=== PATIENT | female | born 1985 | race Caucasian/White ===

== ENCOUNTER 2016-06-09 21:22 | Inpatient (IN) | payer OTHER ==
--- NOTE | ~2016-06-09 | HP ---
Unit #: [id number] #: [id number] Patient: GEORGE MARIE [id number] [address] [place], [place] [address] [id number] I MR#: [id number] NAME: GEORGE MARIE ROOM: 227 Age: 31 Sex: F Admission Date: 06/10/2016 : 1985 Attending Physician: Yana Hart M.D. Primary Care Physician: No Primary Care Physician HISTORY AND PHYSICAL CHIEF COMPLAINT Right-sided pyelonephritis with intractable symptoms. HISTORY This pleasant 31-year-old female with psoriatic arthritis, was transferred from [facility] emergency department for pyelonephritis. Two weeks ago the patient began to experience right upper quadrant to right flank pain, somewhat worse with urination. Recently she has had a nonproductive cough with headaches with a cough, generalized malaise, and more recently sweats and chills. She presented to [facility] ER last evening with a temperature of 99.5. Urine showed significant pyuria, and CT scan was consistent with right pyelonephritis. She was treated with morphine, Zofran, bolused with saline, given 1 g of Rocephin, along with some Dilaudid. Notes that her urine is darker and somewhat malodorous. Also has been experiencing recent nausea and vomiting. PAST MEDICAL HISTORY 1. Psoriatic arthritis. 2. BTL. 3. Endometrial ablation. ALLERGIES Penicillin, Levaquin, tetracycline and Remicade. HOME MEDICATIONS Aleve. FAMILY HISTORY Negative for kidney disease. SOCIAL HISTORY The patient lives with her four children and boyfriend. Smokes 1/2 pack per day of tobacco, does not drink alcohol or use illicit drugs. REVIEW OF SYSTEMS Notable for right upper quadrant, right flank pain, nausea, vomiting, headache, cough, fevers, chills, dark urine, psoriatic arthritis, tobacco use and above mentioned surgeries. All other systems were reviewed and are negative. PHYSICAL EXAMINATION GENERAL: Saundra mildly obese, 31-year-old female currently in no acute distress. Unit #: [id number] #: [id number] Patient: GEORGE MARIE VITAL SIGNS: Temperature 99.5, pulse 95, respirations 20, blood pressure 114/71, O2 saturation 100% on room air. HEENT: Eyes - PERRLA, extraocular muscles are intact. Pharynx is benign. NECK: Supple without adenopathy or thyromegaly. CHEST: Clear with right CVA percussion tenderness. CARDIAC: Normal S1, S2, without S3, S4, or murmur. A ABDOMEN: Bowel sounds are present. Patient is tender in the right upper quadrant without rebound or guarding. No hepatosplenomegaly or masses. EXTREMITIES: Without clubbing, cyanosis or edema. Pedal pulses are present. NEUROLOGIC: Patient is awake, alert and oriented. Cranial nerves are intact. Equal strength throughout. DIAGNOSTIC STUDIES LABS: Hematocrit is 31.6, white blood count 19, normal platelet count and MCV. SMA 12 - albumin is 3. Normal lipase and lactic acid level. Beta HCG negative. Urine - positive leukocyte esterase, nitrates and protein with 25-50 red cells, 50-100 white cells, 2+ bacteria. Many squamous cells are noted. IMAGING STUDIES: Chest x-ray - no acute disease. CT scan of the abdomen and pelvis suggestive of possible pyelonephritis involving the right kidney. ASSESSMENT 1. Right-sided pyelonephritis with intractable symptoms. The patient is experiencing nausea, vomiting and intractable pain. 2. Psoriatic arthritis. 3. Tobacco use. PLANS 1. Rocephin. 2. Pain control. 3. SCDs for DVT prophylaxis. 4. NicoDerm patch. Dictated by Yana Hart M.D. YOBANI/ts TD: 06/10/2016 06:38 JOB #: [id number] HISTORY AND PHYSICAL Page 1 of 1 X Yana Hart MD X HISTORY AND PHYSICAL
--- NOTE | ~2016-06-09 | DS ---
Unit #: [id number] #: [id number] Patient: GEORGE MARIE [id number] [address] [address] [id number] I MR#: [id number] NAME: GEORGE MARIE ROOM: 227 Age: 31 Sex: F Admission Date: 06/10/2016 : 1985 Discharge Date: 06/12/2016 Attending Physician: Gerda Walker M.D. Primary Care Physician: No Primary Care Physician DISCHARGE SUMMARY FINAL DIAGNOSIS Right-sided pyelonephritis. SECONDARY DIAGNOSES 1. Psoriatic arthritis. 2. Tobaccoism. HOSPITAL COURSE Patient is a 31-year-old female who was admitted for a fever, pyuria and pyelonephritis. Was treated with Rocephin. She required Dilaudid for the flank pain. Urine cultures did come back with E-coli, sensitive to Rocephin. She has been (1) for the last 24 hours and does not have much nausea. She is evaluated, suitable and stable for discharge and will discharge in stable condition for outpatient followup with me in the office. MEDICATIONS ON DISCHARGE 1. Ceftin 500 mg p.o. b.i.d. for 7 days. 2. Percocet 10/325 mg 1 tablet p.o. q.4 hours p.r.n. 3. Zofran 4 mg 1 tablet p.o. q.4 hours p.r.n. nausea. 4. Naproxen sodium OTC. 5. Laxative of choice OTC. FOLLOWUP She is scheduled to follow up with me in the office within the next 48 hours. DISCHARGE DISPOSITION She will be discharged home. NOTE: Time spent coordinating discharge was about 21 minutes. Dictated by... Natalia Burrell TD: 06/12/2016 17:01 JOB #: [id number] Unit #: [id number] #: [id number] Patient: GEORGE MARIE DISCHARGE SUMMARY Page 1 of 1 X Vicente Spence MD X DISCHARGE SUMMARY
--- NOTE | ~2016-06-09 | CT2 ---
[facility]. [facility] A Service of [facility] & [facility] RADIOLOGY TEXT RESULTS PATIENT: GEORGE MARIE LOCATION: [facility] 227-01 : [birth year] UNIT #: [id number] AGE: [address]: Yana Hart MD SEX: F ORDER DR: [id number] [address] [address] [id number] E MR#: [id number] Acc #: [id number] NAME: GEORGE MARIE : 1985 SEX: F STUDY DATE/TIME: 06/09/2016 23:21 UNIT: SED ROOM: STUDY DESCRIPTION: CT Abd and Pelv W Cont Attending Physician: Andrea Wang M.D. Ordering Physician: Andrea Wang M.D. Primary Care Physician: Primary Care Physician No MEDICAL IMAGING REPORT This report is preliminary unless electronic signature is present. EXAM CT abdomen and pelvis with contrast 06/09/2016 HISTORY 31-year-old female in the ED complaining of 2-day history of right flank, right side abdomen pain. TECHNIQUE CT examination of the abdomen and pelvis was performed with oral and IV contrast. This CT exam was performed with one or more of the following radiation dose reduction techniques: Automatic exposure control, adjustment of mA and/or kV according to patient size, and iterative reconstruction. FINDINGS ABDOMEN FINDINGS: Liver, pancreas and spleen are normal in size and appearance. The gallbladder is nondistended, and there is no bile duct dilatation. The right kidney is mildly enlarged and is surrounded by a tiny amount of ill-defined fluid and soft tissue stranding. There are also small regions of patchy decreased enhancement within the right mid and lower kidney. The findings suggest potential pyelonephritis, and clinical correlation is recommended. No evidence of renal or perinephric abscess at this time. No evidence of urinary obstruction. Small bowel and colon are normal in caliber and appearance. No evidence of acute appendicitis. Normal-caliber abdominal aorta. PELVIS FINDINGS: Uterus, ovaries, bladder and rectum are within normal limits. Small amount of free pelvic fluid. Lung base images show no active disease in the chest. No basilar [facility] A Service of [facility] & [facility] RADIOLOGY TEXT RESULTS PATIENT: GEORGE MARIE LOCATION: [place] [address] : [birth year] UNIT #: [id number] AGE: [address]: Yana Hart MD SEX: F ORDER DR: infiltrate or pleural effusion. IMPRESSION 1. Findings suggesting possible pyelonephritis involving the right kidney. The right kidney is enlarged and shows patchy regions of mildly decreased parenchymal enhancement as well as a small amount of perinephric fluid and soft tissue stranding. No evidence of renal or perinephric abscess. No evidence of urinary obstruction. Clinical and laboratory correlation recommended. 2. The remainder of the examination is negative. Dictated by... Iraj Carrillo M.D. THIS IS AN ELECTRONICALLY VERIFIED REPORT Iraj Carrillo M.D. at 06/10/2016 6:01 AM ABNER/david TD: 06/09/2016 23:49 JOB #: [id number] MEDICAL IMAGING REPORT Page 1 of 1
--- NOTE | ~2016-06-09 | CR72 ---
[facility]. [facility] A Service of [facility] & [facility] RADIOLOGY TEXT RESULTS PATIENT: GEORGE MARIE LOCATION: [facility] : [birth year] UNIT #: [id number] AGE: [address]: Yana Hart MD SEX: F ORDER DR: [id number] [address] [address] [id number] E MR#: [id number] Acc #: [id number] NAME: GEORGE MARIE : 1985 SEX: F STUDY DATE/TIME: 06/09/2016 23:16 UNIT: SED ROOM: STUDY DESCRIPTION: CR Chest Single View Portable Attending Physician: Andrea Wang M.D. Ordering Physician: Andrea Wang M.D. Primary Care Physician: Primary Care Physician No MEDICAL IMAGING REPORT This report is preliminary unless electronic signature is present. EXAM Chest x-ray 06/09/2016 HISTORY 31-year-old female in the ED complaining of 3-week history of productive cough, fever and headache. She also complains of right flank pain beginning 2 days ago. TECHNIQUE PA upright chest x-ray. FINDINGS The lungs are expanded and clear. Heart size and pulmonary vascularity are normal. No visible pulmonary infiltrate, pneumothorax or pleural effusion. IMPRESSION Negative chest. Dictated by... Iraj Carrillo M.D. THIS IS AN ELECTRONICALLY VERIFIED REPORT Iraj Carrillo M.D. at 06/10/2016 6:01 AM ABNER/david TD: 06/09/2016 23:47 JOB #: [id number] MEDICAL IMAGING REPORT Page 1 of 1
[~2016-06-09 21:22] MED LIST: ALEVE220 M1; ALEVE220 M1 PO; BENZONATATE200 M1 PO; DICLOFENAC PO; FLEXERIL10 MG PO; MACROBID100 M1 PO; NORCO1 TAB 10/3 PO; PREDNISONE PO; PREDNISONE10 MG PO; PREDNISONE50 MG PO; PYRIDIUM PO; VOLTAREN75 MG PO; ZITHROMAX PO
[2016-06-09 22:04] LABS: URINE SOURCE CLEAN CATCH
[2016-06-09 22:07] LABS: URINE BILIRUBIN NEG (NEG); URINE BLOOD 2+ (NEG); URINE COLOR YELLOW; URINE GLUCOSE NEG (NORM); URINE KETONE 1+ (NEG); URINE LEUKOCYTE ESTERASE 1+ (NEG); URINE NITRATE POS (NEG); URINE PROTEIN 1+ (NEG); URINE SPECIFIC GRAVITY 1.015 (1.003-1.035)
[2016-06-09 22:10] LABS: BASOPHIL# 0.1 X10e3 (0-0.3); BASOPHIL% 0.6 % (0-2.5); EOSINOPHIL# 0.1 X10e3 (0-0.7); EOSINOPHIL% 0.3 % (0.0-7.0); HEMATOCRIT 31.6 % (35.0-45.0); HEMOGLOBIN 10.6 gm/dL (12.0-16.0); LYMPHOCYTE# 2.8 X10e3 (1.0-3.5); LYMPHOCYTE% 14.9 % (17.0-45.0); MEAN CELL VOLUME 83.7 FL (83-96); MEAN CORPUSCULAR HGB CONC 33.4 g/dL (30-36); MEAN PLATELET VOLUME 8.2 FL (6.5-11.5); MONOCYTE% 10.7 % (3.0-12.0); NEUTROPHIL% 73.5 % (40-75); PLATELET COUNT 274 X10e3 (140-420); RED BLOOD COUNT 3.77 X10e (3.90-5.30); RED CELL DISTRIBUTION WIDTH 15.4 % (11.0-15.5)
[2016-06-09 22:11] LABS: DIFF IND NO
[2016-06-09 22:12] LABS: MICRO INDICATED? YES; URINE APPEARANCE HAZY
[2016-06-09 22:13] LABS: CULTURE INDICATED? YES; URINE BACTERIA 2+ (NEG); URINE RBC 25-50 /[HPF] (0-2); URINE SQUAMOUS EPITHELIAL CELL MANY /[HPF]; URINE TRANSITIONAL EPI CELLS OCCAS /[HPF]; URINE WBC 50-100 /[HPF] (0-5)
[2016-06-09 22:15] LABS: URINE MUCUS PRESENT
[2016-06-09 22:24] LABS: BILIRUBIN,TOTAL 0.7 mg/dL (0.2-2.0); BUN/CREATININE RATIO 14.44; CALCIUM SERUM 8.4 mg/dL (8.4-10.2); CREATININE SERUM 0.9 mg/dL (0.6-1.4); GLOM FILT RATE Estimated 84.7 mL/min (>60); POTASSIUM 3.6 mmol/L (3.5-5.1)
[2016-06-11 05:44] LABS: HEMATOCRIT 32.6 % (35.0-45.0); HEMOGLOBIN 10.7 gm/dL (12.0-16.0); MEAN CELL VOLUME 84.1 FL (83-96); MEAN CORPUSCULAR HEMOGLOBIN 27.6 PG (28-34); MEAN CORPUSCULAR HGB CONC 32.8 g/dL (30-36); MEAN PLATELET VOLUME 8.1 FL (6.5-11.5); RED BLOOD COUNT 3.87 X10e (3.90-5.30); RED CELL DISTRIBUTION WIDTH 15.2 % (11.0-15.5)
[2016-06-11 06:45] LABS: BUN/CREATININE RATIO 11.42; CALCIUM SERUM 8.4 mg/dL (8.4-10.2); CREATININE SERUM 0.7 mg/dL (0.6-1.4); GLOM FILT RATE Estimated 114.6 mL/min (>60); MAGNESIUM 1.8 mg/dL (1.6-3.0); POTASSIUM 3.5 mmol/L (3.5-5.1)
[2016-06-12 08:22] LABS: HEMATOCRIT 32.3 % (35.0-45.0); HEMOGLOBIN 10.5 gm/dL (12.0-16.0); MEAN CELL VOLUME 83.6 FL (83-96); MEAN CORPUSCULAR HEMOGLOBIN 27.1 PG (28-34); MEAN CORPUSCULAR HGB CONC 32.4 g/dL (30-36); MEAN PLATELET VOLUME 8.1 FL (6.5-11.5); RED BLOOD COUNT 3.86 X10e (3.90-5.30); RED CELL DISTRIBUTION WIDTH 14.8 % (11.0-15.5); WHITE BLOOD COUNT 11.3 X10e3 (4.0-10.5)
[2016-06-12 08:52] LABS: BUN/CREATININE RATIO 7.14; CALCIUM SERUM 8.5 mg/dL (8.4-10.2); CREATININE SERUM 0.7 mg/dL (0.6-1.4); GLOM FILT RATE Estimated 114.6 mL/min (>60); POTASSIUM 3.7 mmol/L (3.5-5.1)
[2016-06-12] MEDS ORDERED: ONDANSETRON HCL4 M1 PO (11:31)
[2016-06-12] MEDS ORDERED: LOC PO (11:31)
[2016-06-12] MEDS ORDERED: OXYCODONE-APAP1 EAC5 PO (11:32)
[2016-06-12] MEDS ORDERED: CEFTIN PO (11:33)
== END 2016-06-12 12:30 | disposition home or self-care (01) | DRG 690 ==
LOC: SED 21:22 → C2A 06-10 05:00
PROVIDERS: Family Medicine; Internal Medicine
DX: N10 Acute pyelonephritis (principal); L40.50 Arthropathic psoriasis, unspecified; B96.20 Unspecified Escherichia coli [E. coli] as the cause of diseases classified elsewhere; F17.210 Nicotine dependence, cigarettes, uncomplicated; Z88.0 Allergy status to penicillin; Z88.1 Allergy status to other antibiotic agents; Z88.8 Allergy status to other drugs, medicaments and biological substances; E66.9 Obesity, unspecified; Z68.27 Body mass index [BMI] 27.0-27.9, adult
CPT/HCPCS: 36415; 71010; 74177; 80048; 80053; 81003; 82150; 83605; 83690; 83735; 84703; 85025; 85027; 87086; 87088; 87186; 99285; J0696; J1170; J2270; J2405; Q9967

== ENCOUNTER 2016-08-18 22:11 | Emergency (ER) | payer OTHER ==
--- NOTE | ~2016-08-18 | CT4 ---
[facility] A Service of [facility] RADIOLOGY TEXT RESULTS PATIENT: GEORGE MARIE LOCATION: SED : 83 UNIT #: [id number] AGE: [address]: Michele Choi MD SEX: F ORDER DR: [id number] [address] [address] [id number] E MR#: [id number] Acc #: [id number] NAME: GEORGE MARIE : 1985 SEX: F STUDY DATE/TIME: 08/18/2016 23:57 UNIT: SED ROOM: STUDY DESCRIPTION: CT Abd and Pelv Wo Cont Attending Physician: Michele Choi M.D. Ordering Physician: Michele Choi M.D. Primary Care Physician: Primary Care Physician No MEDICAL IMAGING REPORT This report is preliminary unless electronic signature is present. EXAM CT abdomen and pelvis INDICATION Low back pain. Right flank pain. Dysuria and hematuria for [address] of the abdomen and pelvis without contrast. Coronal and sagittal reconstructions were obtained. This CT examination was performed with one or more of the following radiation dose reduction techniques: automatic exposure control, adjustment of mA and/or kV according to patient size, and iterative reconstruction. COMPARISON CT abdomen and pelvis 06/09/2016. FINDINGS ABDOMEN: No urinary calculi. No hydronephrosis. Noncontrast evaluation of the remaining solid abdominal organs and the gallbladder are within normal limits. The bowel is not dilated. The appendix is normal. The abdominal aorta is normal in caliber. No enlarged retroperitoneal or mesenteric lymph nodes. PELVIS: There is some hyperdense material within the uterine cavity. This probably represents some blood products. Please correlate with patient's menstrual cycle. The ovaries are unremarkable. Bladder is decompressed. No acute osseous abnormalities. IMPRESSION 1. No urinary calculi. Normal appendix. [facility] A Service [facility] RADIOLOGY TEXT RESULTS PATIENT: GEORGE MARIE LOCATION: SED : 83 UNIT #: [id number] AGE: [address]: Michele Choi MD SEX: F ORDER DR: 2. Hyperdense material within the endometrial canal probably represents some blood products. Please correlate with patient's menstrual cycle. 3. Otherwise, there is a small volume of free fluid which is likely physiologic. Dictated by... Mian Stapleton M.D. THIS IS AN ELECTRONICALLY VERIFIED REPORT Mian Stapleton M.D. at 08/22/2016 2:13 PM DELMIS/rolando TD: 08/19/2016 06:39 JOB #: [id number] MEDICAL IMAGING REPORT Page 1 of 1
[~2016-08-18 22:11] MED LIST changes: +CEFTIN PO; +LOC PO; +ONDANSETRON HCL4 M1 PO; +OXYCODONE-APAP1 EAC5 PO
[2016-08-18 22:38] LABS: URINE SOURCE CLEAN CATCH
[2016-08-18 22:40] LABS: URINE APPEARANCE CLEAR; URINE BILIRUBIN NEG (NEG); URINE BLOOD 1+ (NEG); URINE COLOR YELLOW; URINE GLUCOSE NEG (NORM); URINE KETONE NEG (NEG); URINE LEUKOCYTE ESTERASE NEG (NEG); URINE NITRATE NEG (NEG); URINE PH 6.5 (5-8); URINE PROTEIN NEG (NEG); URINE UROBILINOGEN 0.2 MG/DL (NORM)
[2016-08-18 22:41] LABS: MICRO INDICATED? YES
[2016-08-18 22:45] LABS: CULTURE INDICATED? NO; URINE BACTERIA NEG (NEG); URINE MUCUS PRESENT; URINE SQUAMOUS EPITHELIAL CELL OCCAS /[HPF]; URINE TRANSITIONAL EPI CELLS FEW /[HPF]
[2016-08-19 00:03] LABS: HEMATOCRIT 36.7 % (35.0-45.0); HEMOGLOBIN 12.3 gm/dL (12.0-16.0); MEAN CELL VOLUME 86.7 FL (83-96); MEAN CORPUSCULAR HGB CONC 33.5 g/dL (30-36); MEAN PLATELET VOLUME 8.4 FL (6.5-11.5); RED BLOOD COUNT 4.24 X10e (3.90-5.30); RED CELL DISTRIBUTION WIDTH 15.6 % (11.0-15.5); WHITE BLOOD COUNT 10.1 X10e3 (4.0-10.5)
[2016-08-19 00:19] LABS: BUN/CREATININE RATIO 13.75; CALCIUM SERUM 8.3 mg/dL (8.4-10.2); CREATININE SERUM 0.8 mg/dL (0.6-1.4); GLOM FILT RATE Estimated 97.6 mL/min (>60); POTASSIUM 3.4 mmol/L (3.5-5.1)
== END 2016-08-19 00:58 | disposition home or self-care (01) ==
LOC: SED 22:11
PROVIDERS: Emergency Medicine
DX: M54.9 Dorsalgia, unspecified (principal); N12 Tubulo-interstitial nephritis, not specified as acute or chronic; F17.200 Nicotine dependence, unspecified, uncomplicated
CPT/HCPCS: 36415; 74176; 80048; 81003; 84703; 85027; 87086; 96361; 96374; 96375; 99284; J1885; J2405